=== PATIENT | female | born 1985 ===

== ENCOUNTER → 2017-07-08 | Outpatient (CLI) | payer OTHER ==
[~2017-07-08] MED LIST: GADOBUTROL 10 ML VIAL IVP ONE
== END ==
LOC: FIMAGING 14:01
PROVIDERS: ATTEND Family Medicine
DX: E22.1 Hyperprolactinemia (principal); R10.2 Pelvic and perineal pain; N83.201 Unspecified ovarian cyst, right side
CPT/HCPCS: A9585

== ENCOUNTER 2018-03-06 17:53 | Emergency (ER) | payer OTHER ==
[2018-03-06] MEDS ORDERED: NS 1,000 ML IV ONE (18:09)
[2018-03-06 18:32] LABS: PLATELET COUNT 313 10^3/uL (150-400)
--- NOTE | 2018-03-06 18:40 | EDPHY ---
H & P Stated Complaint: Feels like heart is racing since yesterday Time Seen by Provider: 03/06/18 17:57 HPI/ROS: CHIEF COMPLAINT: Rapid heart rate HISTORY OF PRESENT ILLNESS: 32-year-old female presents with a 2 day history of rapid heart rate. Onset tachycardia 2 days ago, persistent since then. The tachycardia is associated with a pounding sensation in her chest. She has been treated for elevated thyroid levels by a rolled materials worker, using natural compounds. She stop taking the thyroid medication 2 weeks ago. No caffeine use and she does not feel anxious. No shortness of breath, dizziness or recent illness. REVIEW OF SYSTEMS: complete 10 point ROS reviewed and is negative except for the noted elements in the HPI - Personal History LMP (Females 10-55): Irregular Current Tetanus Diphtheria and Acellular Pertussis (TDAP): Yes - Medical/Surgical History Other PMH: "palpitations" no card evaluation - Social History Smoking Status: Never smoked - Physical Exam Exam: General Appearance: Alert, pleasant Eyes: Pupils equal and round, no conjunctival pallor or injection ENT, Mouth: Mucous membranes moist Neck: Normal inspection Respiratory: Lungs are clear to auscultation Cardiovascular: Regular tachycardia, rate 110, no murmur Gastrointestinal: Abdomen is soft and nontender Neurological: A&O, nonfocal, no tremor, normal gait Skin: Warm and dry, no rash Extremities: Nontender, no pedal edema Psychiatric: Mood and affect normal Constitutional: Initial Vital Signs Temperature (C) 36.5 C 03/06/18 17:53 Heart Rate 106 H 03/06/18 17:53 Respiratory Rate 18 03/06/18 17:53 Blood Pressure 128/78 H 03/06/18 17:53 O2 Sat (%) 97 03/06/18 17:53 O2 Delivery Mode Room Air Allergies/Adverse Reactions: No Known Allergies Allergy (Unverified 03/06/18 17:54) Home Medications: Medication Instructions Recorded NK [No Known Home Meds] 03/06/18 Medical Decision Making - Diagnostics EKG Interpretation: EKG interpreted by me reveals sinus tachycardia, rate 119, no ST or T segment changes. Interpretation: Normal EKG ED Course/Re-evaluation: This patient presents with sinus tachycardia. Stat EKG reveals no evidence of ischemia or worrisome dysrhythmia. Laboratory tests obtained and are all normal , including thyroid testing. D-dimer ordered as a screening test for pulmonary embolism causing tachycardia and the ddimer is normal. IV NS 1 liter given, HR remains 100. Will have pt f/u with PCP for further evaluation. Differential Diagnosis: Includes though is not limited to, and no particular order, thyrotoxicosis, pulmonary embolism, anemia, dehydration, dysrhythmia such as atrial flutter. - Data Points Laboratory Results: Laboratory Results 03/06/18 18:20 03/06/18 18:20 03/06/18 03/06/18 03/06/18 18:22 18:20 18:20 WBC RBC Hgb Hct MCV MCH MCHC RDW Plt Count MPV Neut % (Auto) Lymph % (Auto) [place] % (Auto) Eos % (Auto) Baso % (Auto) Nucleat RBC Rel Count Absolute Neuts (auto) Absolute Lymphs (auto) Absolute Monos (auto) Absolute Eos (auto) Absolute Basos (auto) Absolute Nucleated RBC Immature Gran % Immature Gran # D-Dimer < 0.27 ug/mLFEU ug/mLFEU (0.00-0.50) Sodium Potassium Chloride Carbon Dioxide Anion Gap BUN Creatinine Estimated GFR Glucose Calcium POC Troponin I 0.00 ng/mL ng/mL (0.00-0.08) TSH Free T4 Free T3 Beta HCG, Qual NEGATIVE 03/06/18 03/06/18 18:20 18:20 WBC 8.33 10^3/uL 10^3/uL (3.80-9.50) RBC 4.40 10^6/uL 10^6/uL (4.18-5.33) Hgb 12.8 g/dL g/dL (12.6-16.3) Hct 38.1 % % (38.0-47.0) MCV 86.6 fL fL (81.5-99.8) MCH 29.1 pg pg (27.9-34.1) MCHC 33.6 g/dL g/dL (32.4-36.7) RDW 12.1 % % (11.5-15.2) Plt Count 313 10^3/uL 10^3/uL (150-400) MPV 9.6 fL fL (8.7-11.7) Neut % (Auto) 59.9 % % (39.3-74.2) Lymph % (Auto) 28.8 % % (15.0-45.0) [place] % (Auto) 6.6 % % (4.5-13.0) Eos % (Auto) 3.7 % % (0.6-7.6) Baso % (Auto) 0.8 % % (0.3-1.7) Nucleat RBC Rel Count 0.0 % % (0.0-0.2) Absolute Neuts (auto) 4.98 10^3/uL 10^3/uL (1.70-6.50) Absolute Lymphs (auto) 2.40 10^3/uL 10^3/uL (1.00-3.00) Absolute Monos (auto) 0.55 10^3/uL 10^3/uL (0.30-0.80) Absolute Eos (auto) 0.31 10^3/uL 10^3/uL (0.03-0.40) Absolute Basos (auto) 0.07 10^3/uL 10^3/uL (0.02-0.10) Absolute Nucleated RBC 0.00 10^3/uL 10^3/uL (0-0.01) Immature Gran % 0.2 % % (0.0-1.1) Immature Gran # 0.02 10^3/uL 10^3/uL (0.00-0.10) D-Dimer Sodium 139 mEq/L mEq/L (135-145) Potassium 3.4 mEq/L mEq/L (3.3-5.0) Chloride 105 mEq/L mEq/L (97-110) Carbon Dioxide 21 mEq/l L mEq/l (22-31) Anion Gap 13 mEq/L mEq/L (6-14) BUN 15 mg/dL mg/dL (7-23) Creatinine 0.7 mg/dL mg/dL (0.6-1.0) Estimated GFR > 60 Glucose 126 mg/dL H mg/dL (70-100) Calcium 9.5 mg/dL mg/dL (8.5-10.4) POC Troponin I TSH 2.000 uIU/mL uIU/mL (0.465-4.680) Free T4 0.76 ng/dL ng/dL (0.59-2.19) Free T3 3.04 pg/mL pg/mL (2.77-5.27) Beta HCG, Qual Medications Given: Discontinued Medications Sodium Chloride (Ns) 1,000 mls @ 0 mls/hr IV EDNOW ONE; Wide Open PRN Reason: Protocol Stop: 03/06/18 18:10 Last Admin: 03/06/18 18:28 Dose: 1,000 mls Point of Care Test Results: Chemistry 03/06/18 18:22 POC Troponin I 0.00 ng/mL ng/mL (0.00-0.08) Departure - Departure Disposition: Home, Routine, Self-Care Clinical Impression: Sinus tachycardia Condition: Good Instructions: Heart Palpitations (ED) Referrals: Pina Garcias MD [Primary Care Provider] - As per Instructions (Call to make an appointment.) Ezequiel Erwin MD [Medical Doctor] - As per Instructions (Call to make an appointment.)
[2018-03-06 20:15] VITALS: BP 103/68
--- NOTE | 2018-03-06 22:19 | CPEKG ---
Test Reason : OPEN Blood Pressure : / mmHG Vent. Rate : 119 BPM Atrial Rate : 121 BPM P-R Int : 162 ms QRS Dur : 086 ms QT Int : 311 ms P-R-T Axes : 048 034 001 degrees QTc Int : 438 ms Sinus tachycardia Borderline T abnormalities, anterior leads Confirmed by Patti Dunbar ([id number]) on 03/06/2018 10:18:56 PM Referred By: Confirmed By:Patti Dunbar
== END 2018-03-06 20:13 | disposition home or self-care (01) ==
DX: R00.0 Tachycardia, unspecified (principal); E86.9 Volume depletion, unspecified
CPT/HCPCS: 84481-90; 84484-PO

== ENCOUNTER → 2018-04-07 | Outpatient (CLI) | payer OTHER ==
--- NOTE | 2018-04-07 15:47 | ECHO ---
[email or web address] [address] [address] Main: [phone] Fax: Transthoracic Echocardiogram Name: EULALIA ALMONTE MR#: [id number] Study Date: 04/07/2018 Study Time: 02:00 PM Date of : 1985 Age: 32 year(s) Height: 154.9 cm (61 in.) Weight: 69.4 kg (153 lb.) BSA: 1.69 m2 Gender: Female Examination: Echo Indication: Tachycardia Image Quality: Contrast: Requested by: Elmo Johns BP: 128 mmHg/78 mmHg Heart Rate: Rhythm: Tachycardia Indication: Tachycardia Procedure Staff Psychiatric Nursing Assistant: Stuart Paz RDCS Reading Physician: Alex Morris MD Requesting Provider: Conclusions: Normal size left ventricle. EF is 72 %. No regional wall motion abnormality. Normal RV function. The mitral valve is normal in appearance and function. The aortic valve is tri-leaflet and functions normally. The tricuspid valve is normal in appearance and function. There is no previous echocardiogram for comparison. Measurements: Chambers Valvular Assessment AV/MV Valvular Assessment TV/PV Normal Normal Normal Name Value Range Name Value Range Name Value Range Ao Yashira (MM): 2.8 cm (2.2 cm-3.7 AV Vmax: 1.44 m/s (1 m/s-1.7 PV Vmax: 1.02 m/s (0.6 m/s-0.9 cm) m/s) m/s) IVSd (2D): 0.8 cm (0.6 cm-1.1 AV maxP mmHg ( - ) PV PGmax: 4 mmHg ( - ) cm) LVOT Vmax: 0.92 m/s (0.7 m/s-1.1 LVDd (2D): 4.3 cm (3.9 cm-5.3 m/s) cm) MV E Vmax: 0.93 m/s ( - ) LVDs (2D): 2.5 cm (2.1 cm-4 cm) LVPWd (2D): 0.8 cm ( - ) LVEF (2D): 72 (>=54 %) Continued Measurements: Chambers Valvular Assessment AV/MV Name Value Name Value LADs Lon.9 cm MV E' Septal: 0.10 m/s Patient: EULALIA ALMONTE Study Date: 04/07/2018 Page 1 of 2 02:00 PM LA Area: 11.1 cm2 MV E/E' Septal: 9.10 MV E/E' Lateral: 8.10 Findings: Left Ventricle: Normal size left ventricle. No LV hypertrophy. Normal global systolic LV function. EF is 72 %. No regional wall motion abnormality. Normal diastolic LV function. Right Ventricle: Normal size right ventricle. Normal RV function. Left Atrium: The left atrium is normal in size. Right Atrium: The right atrium is normal in size. Mitral Valve: The mitral valve is normal in appearance and function. There is no mitral valve regurgitation. No mitral stenosis is present. Aortic Valve: The aortic valve is tri-leaflet and functions normally. No aortic valve stenosis is present. Tricuspid Valve: The tricuspid valve is normal in appearance and function. Pulmonic Valve: The pulmonic valve is normal in appearance and function. Aorta: The aorta is normal. Pericardium: No pericardial effusion. Exam Comments: The heart rate during the exam was from approximately 80bpm to 100bpm.. (No Signature Object) Patient: EULALIA ALMONTE Study Date: 04/07/2018 Page 2 of 2 02:00 PM [id number]
== END ==
LOC: FCP 13:47
PROVIDERS: ATTEND Internal Medicine Interventional Cardiology
DX: R00.0 Tachycardia, unspecified (principal)